=== PATIENT | male | born 2000 | race Caucasian/White ===

== ENCOUNTER 2025-08-15 22:54 | Emergency (ER) | payer OTHER ==
[2025-08-15] MEDS ORDERED: Lidocaine 1% w/Epinephrine 1:100K 20 ML VIAL ONE (23:44)
== END 2025-08-16 05:02 ==
LOC: EEVIPCON 22:54 → ERS 22:54
DX: S01.112A Laceration without foreign body of left eyelid and periocular area, initial encounter (principal); S01.81XA Laceration without foreign body of other part of head, initial encounter; Z23 Encounter for immunization; Y04.0XXA Assault by unarmed brawl or fight, initial encounter
CPT/HCPCS: 12013; 90471; 90715